=== PATIENT | female | born 1975 | race Two or more races ===

== ENCOUNTER 2025-08-16 20:21 | Emergency (ER) | payer OTHER ==
[~2025-08-16] VITALS: Ht 157.5 cm; Wt 73.5 kg
[2025-08-16 20:37] VITALS: BP 100/60; O2SAT 99
[2025-08-16] MEDS ORDERED: ZIRTEC (20:42)
[2025-08-16] MEDS ORDERED: [UNRECOGNIZED DRUG - OTHER] (20:42)
[2025-08-16] MEDS ORDERED: PREDNISOLONE1 GM (20:42)
[2025-08-16] MEDS ORDERED: [UNRECOGNIZED DRUG - OTHER] (20:42)
[2025-08-16] MEDS ORDERED: IPRATROPIUM/ALBUTEROL SULFATE 3 ML AMPUL.NEB IH ONE (21:00)
[2025-08-16 21:25] LABS: BASO % 0.4 % (0.1-1.2); EOS # 0.14 (0.04-0.54); EOS % 5.1 % (0.7-7.0); LYMPH # 0.69 (1.18-3.74); LYMPH % 25.4 % (19.3-53.1); MEAN PLATELET VOLUME 9.00 fl (9.4-12.4); MONO # 0.34 (0.24-0.82); NEUT # 1.54 (1.56-6.13); NEUT % 56.6 % (34.0-71.1); RED CELL DISTRIBUTION WIDTH 12.3 % (11.6-14.4)
[2025-08-16 21:35] LABS: ERYTHROCYTE SEDIMENTATION RATE 17 mm/hr (0-20)
[2025-08-16 21:44] LABS: COVID-19 AG NEGATIVE (NEGATIVE)
[2025-08-16 22:00] LABS: BAND MAN 1.0 %; BASOPHIL MAN 2.0 %; EOSINOPHIL MAN 1.0 %; LYMPHOCYTE MAN 20.0 %; MONO % 12.5 % (4.7-12.5); MONOCYTE MAN 11.0 %; NEUTROPHILS MAN 55.0 %
[2025-08-16 22:18] LABS: ALT/SGPT 296.0 U/L (12-78); AST/SGOT 191.0 U/L (15-37); BILIRUBIN TOTAL 0.45 mg/dL (0.3-1.2); BUN CREA RATIO 24.0 (7.0-25.0); CREATININE SERUM 0.7 mg/dL (0.55-1.02); GFR 89.69; GLOBULINA 3.5 G/DL (2.4-3.5); GLUCOSE FASTING 138.0 mg/dL (65-100); OSMOLALITY SERUM 276.0 MOSM/KG (275-295)
[2025-08-17] MEDS ORDERED: IPRATROPIUM/ALBUTEROL SULFATE 3 ML AMPUL.NEB IH ONE (00:41)
[2025-08-17] MEDS ORDERED: IPRAT-ALBUT 0.5-3 ML IH (01:30)
[2025-08-17] MEDS ORDERED: ZYRTEC10 MG PO (01:30)
[2025-08-17] MEDS ORDERED: MUCINEX D ER 11 EACH PO (01:30)
== END 2025-08-17 01:58 | disposition home or self-care (01) ==
LOC: ER 20:21
PROVIDERS: Student in an Organized Health Care Education/Training Program
DX: A49.3 Mycoplasma infection, unspecified site (principal); Z91.013 Allergy to seafood; R05.8 Other specified cough; Z20.822 Contact with and (suspected) exposure to COVID-19